=== PATIENT | female | born 1955 | race Caucasian/White ===

== ENCOUNTER → 2021-05-09 10:30 | Outpatient (BNVA) | payer MEDICARE, SELFPAY | PROVIDERS: Family Provider Family Medicine; PCP Family Medicine; Visit Provider Nurse Practitioner Family | DX: Z20.822 Contact with and (suspected) exposure to COVID-19 (principal); R68.89 Other general symptoms and signs; J01.40 Acute pansinusitis, unspecified; R11.2 Nausea with vomiting, unspecified | CPT/HCPCS: 87635 ==